=== PATIENT | male | born 1995 | race Caucasian/White ===

== ENCOUNTER → 2019-09-04 | Outpatient (CLI) | payer BC, MEDICAID ==
--- NOTE | 2019-09-04 12:33 | REP ---
Right hip three views : There is no fracture or dislocation. Mineralization and joint spaces are normal. There are no calcifications or foreign bodies. Impression: Negative right hip. If symptoms persist or worsen, consider MRI. . Electronically Signed by Rob Miles MD 09/04/2019 12:25 P
== END ==
LOC: M LRY 12:08
PROVIDERS: ATTEND Nurse Practitioner Family
DX: M25.551 Pain in right hip (principal)